=== PATIENT | male | born 1985 | race Caucasian/White ===

== ENCOUNTER 2024-02-07 20:42 | Emergency (ER) | payer OTHER, SELFPAY ==
[2024-02-07 20:54] VITALS: BP 149/86; PULSE 89; RESP 16; TEMP 37.2; O2SAT 99; BMI 29.5
--- NOTE | 2024-02-07 20:54 | DI.RAD.S_ITS ---
PROCEDURE: XR ANKLE LT MIN 3V INDICATIONS: slipped and fall pain in lateral aspect of foot TECHNIQUE: 3 views of the ankle were acquired. COMPARISON: None. FINDINGS: Bones: No fractures or dislocations. Ankle mortise is normally aligned. No suspicious bony lesions. Soft tissues: No tibiotalar joint effusion. Achilles tendon appears normal. IMPRESSION: No acute osseous abnormality. If pain persists with conservative management, consider repeat x-ray in 10-14 days or cross-sectional imaging. Dictated by: Mayur Hayden M.D. on 02/07/2024 at 21:20 Approved by: Mayur Hayden M.D. on 02/07/2024 at 21:20
[2024-02-07] MEDS: IBUPROFEN 400 MG TABLET 800 MG PO (22:55)
--- NOTE | 2024-02-07 23:05 | PC.NURSE ---
Pt unable to tolerate when I palpated for a pedal pulse. I brought in doppler and pt continues to endorse high pain level while utilizing doppler. Pulse found with doppler. Pt refused me wiping off ultrasound gel states just leave the gel on.
--- NOTE | 2024-02-07 23:11 | ED_ITS ---
HPI - Extremity Injury (Lower) General Chief Complaint: Extremity Injury, Lower Stated Complaint: lt foot injury Time Seen by Provider: 02/07/24 22:33 Source: patient Mode of arrival: Ambulatory History of Present Illness HPI Narrative: 38-year-old male presents by private vehicle for left foot injury. Earlier today patient was at work and he attempted to disconnect a cable at work for safety and rolled his ankle. He states that it hurt but he did not think much of it until he went home and took his boot off. States that he can not put any weight on his foot anymore. Complaining of pain over his lateral ankle and across the top of his foot. Related Data Allergies Allergy/AdvReac Type Severity Reaction Status Date / Time amoxicillin Allergy Hives Verified 02/07/24 20:57 Penicillins Allergy Hives Verified 02/07/24 20:57 Patient History Social History Smoking Status: Former smoker Smoking Status: Former smoker alcohol intake frequency: a few times a month Substance Use Type: marijuana Exam Initial Vital Signs Initial Vital Signs: Vital Signs Temperature 98.9 F 02/07/24 20:54 Pulse Rate 89 02/07/24 20:54 Respiratory Rate 16 02/07/24 20:54 Blood Pressure 149/86 H 02/07/24 20:54 Pulse Oximetry 99 02/07/24 20:54 Oxygen Delivery Method Room Air 02/07/24 20:54 Const: Awake, alert, nontoxic appearing MSK: minimal lateral malleolar tenderness, no obvious deformity. Palpable DP pulses, capillary refill <2 seconds Skin: Warm, Dry, intact, no rashes Neuro: AO x3, CN II-XII grossly intact, moves all extremities Course Orders Ordered: ED Orders 02/07/24 20:54 XR ankle LT min 3V Stat 02/07/24 23:11 XR foot LT min 3V Stat Discontinued Medications Hydrocodone Bitart/Acetaminophen (Hydrocodone/Acet 5/325 Prepack) 1 bottle MISC DIRECTED ONE Stop: 02/07/24 23:41 Last Admin: 02/07/24 23:56 Dose: 1 bottle Documented By: CHUCK Ibuprofen (Ibuprofen 400 Mg Tablet) 800 mg PO NOW ONE Stop: 02/07/24 22:47 Last Admin: 02/07/24 22:55 Dose: 800 mg Documented By: CHUCK Vital Signs Vital signs: Vital Signs - 8 hr 02/08/24 00:15 Pulse Rate 65 Respiratory Rate 16 Blood Pressure 142/83 H Pulse Oximetry 98 Oxygen Delivery Method Room Air MDM - Extremity Injury (Lower) Imaging Data Extremity x-ray #1: Radiologist's Impression: PROCEDURE: XR ANKLE LT MIN 3V INDICATIONS: slipped and fall pain in lateral aspect of foot TECHNIQUE: 3 views of the ankle were acquired. COMPARISON: None. FINDINGS: Bones: No fractures or dislocations. Ankle mortise is normally aligned. No suspicious bony lesions. Soft tissues: No tibiotalar joint effusion. Achilles tendon appears normal. IMPRESSION: No acute osseous abnormality. If pain persists with conservative management, consider repeat x-ray in 10-14 days or cross-sectional imaging. Dictated by: Mayur Hayden M.D. on 02/07/2024 at 21:20 Approved by: Mayur Hayden M.D. on 02/07/2024 at 21:20 Extremity x-ray #2: Radiologist's Impression: PROCEDURE: XR FOOT LT MIN 3V INDICATIONS: INVERSION INJURY, DORSAL FOOT PAIN TECHNIQUE: 3 views of the foot were acquired. COMPARISON: None. FINDINGS: Bones: No fractures or dislocations. No suspicious bony lesions. Soft tissues: No tibiotalar joint effusion. Achilles tendon appears normal. IMPRESSION: No acute osseous abnormality. If pain persists with conservative management, consider repeat x-ray in 10-14 days or cross-sectional imaging. Dictated by: Mayur Hayden M.D. on 02/07/2024 at 23:34 Approved by: Mayur Hayden M.D. on 02/07/2024 at 23:34 [facility] Narrative Medical decision making narrative: Pain in foot and ankle after rolling his ankle at work. Minimal swelling to left lateral malleolar region, no obvious deformity. No knee or calf tenderness, compartments soft. Nursing staff note that patient for them was unable to tolerate palpating pulses, however it was able to palpate a pedal pulse without undue distress to the patient. X-ray imaging negative for acute fracture. Patient continues to complain of pain clutching at his ankle and keeping it elevated in the air. Out of precaution patient placed in splint, he states that he already has crutches at home. A very small amount of pain medications given to the patient for discharge. Rice instructions counseled at bedside. He was advised that if he continues to have pain at 10-14 days post injury he should have a repeat x-ray performed. Orthopedic phone number referral provided Discharge Plan Departure Patient Disposition: Home Clinical Impression: Ankle sprain Instructions: DI for Ankle Sprain Activity Restrictions/Additional Instructions: Your x-rays today did not show any signs of fracture. As a precaution you were placed in a splint. Use the crutches that you have at home for pain. Take Tylenol and ibuprofen as needed for pain at home. Apply ice to areas of swelling, and elevate your foot when at rest. If you continued to have pain after 10-14 days then I recommend repeating the x-rays to see if a fracture becomes more obvious later on. Follow up with Orthopedics. Four tablets of hydrocodone has been given to you. Do not take this medication with alcohol or before driving as this causes drowsiness and puts you at increased risk of falling. This medication also causes constipation, take a stool softener if you use this medication. Referrals: Eliana Dan MD [Physician] - Stand Alone Forms: Patient Portal/API/Survey, Work Release Note
[2024-02-07] MEDS: HYDROCODONE/ACET 5/325 PREPACK 1 BOTTLE MISC (23:56)
[2024-02-08 00:15] VITALS: BP 142/83; PULSE 65; RESP 16; O2SAT 98
== END 2024-02-08 00:27 | disposition home or self-care (01) ==
PROVIDERS: Emergency Provider Emergency Medicine
DX: S93.402A Sprain of unspecified ligament of left ankle, initial encounter (principal); X50.1XXA Overexertion from prolonged static or awkward postures, initial encounter
CPT/HCPCS: 29515; 73610; 73630; 99284